=== PATIENT | male | born 1940 | race Caucasian/White ===

== ENCOUNTER 2020-12-21 13:40 | Inpatient (IN) | payer MEDICARE ==
[2020-12-21 15:19] VITALS: BMI 19.8
[2020-12-21] MEDS ORDERED: Ondansetron ODT 4 MG TAB PO PRN (15:33)
[2020-12-21] MEDS ORDERED: Nitroglycerin 0.4 MG TAB (25 Tab Bottle) SL PRN (15:33)
[2020-12-21] MEDS ORDERED: Acetaminophen 325 MG TAB PO PRN (15:33)
[2020-12-21] MEDS ORDERED: Zolpidem Tartrate 5 MG TAB PO PRN (15:33)
[2020-12-21] MEDS ORDERED: Senokot S 8.6-50 MG TAB PO PRN (15:33)
[2020-12-21] MEDS ORDERED: Ondansetron PF 4 MG/2 ML Vial IVP PRN (15:33)
[2020-12-21] MEDS ORDERED: Guaifenesin DM 100-10/5 ML UDCUP PO PRN (15:33)
[2020-12-21] MEDS ORDERED: Loperamide HCl 2 MG CAP PO PRN (15:33)
[2020-12-21] MEDS ORDERED: Calcium Carbonate 500 MG ChewTAB PO PRN (15:33)
[2020-12-21] MEDS ORDERED: Bisacodyl 10 MG SUPP PR PRN (15:33)
[2020-12-21] MEDS ORDERED: HYDROcodone/Acetaminophen 5/325 mg Tablet PO PRN (15:33)
[2020-12-21 19:52] LABS: Bacteria/HPF None Seen HPF (None Seen); Bilirubin Negative (Negative); Blood, Urine Negative (Negative); Clarity Clear (Clear); Glucose, Urine (Dipstick) Normal (Negative); Ketone, Urine Negative (Negative); Leukocyte Negative Leu/uL (Negative); Nitrite Negative (Negative); Protein, Urine (Dipstick) Negative (Neg-Trace); RBC/HPF 0-3 HPF (0-3); Specific Gravity, Urine 1.016 (1.002-1.036); Squamous Epithelial None Seen HPF (0-3); Urobilinogen Normal mg/dL (Less than 2); WBC/HPF 0-3 HPF (0-3); pH, Urine 5.5 (5.0-9.0)
[2020-12-21] MEDS ORDERED: Sodium Chloride 0.9% 1,000 ML IV SCH (20:45)
[2020-12-21] MEDS: Famotidine 20 MG TAB PO SCH (21:00)
[2020-12-21] MEDS ORDERED: Enoxaparin Sodium 80 MG/0.8 ML SYRINGE SC SCH (21:00)
[2020-12-21] MEDS ORDERED: Metoprolol Tartrate 25 MG TAB PO SCH (21:00)
[2020-12-21] MEDS ORDERED: Metoprolol Tartrate 50 MG TAB PO SCH (21:00)
[2020-12-21] MEDS: Rosuvastatin 10 MG TAB PO SCH (21:13)
[2020-12-21] MEDS: Nitroglycerin 2% Ointment 1 INCH/1 GM Packet TOP SCH (21:20)
[2020-12-22] MEDS: Sodium Chloride 0.9% 1,000 ML IV SCH ×2 (01:04→11:08)
[2020-12-22 03:42] LABS: #Eosinphils 0.3 thou/uL (0.0-0.7); #Lymphocytes 2.6 thou/uL (1.20-3.40); #Monocytes 0.5 thou/uL (0.11-0.59); #Neutrophils 3.2 thou/uL (1.40-6.50); %Basophils 0.3 % (0.0-1.0); %Eosinophils 4.9 % (0.0-10.0); %Lymphocytes 39.1 % (21.0-51.0); %Monocytes 7.6 % (0.0-10.0); %Neutrophils 48.1 % (42.0-75.0); Hemoglobin 12.2 g/dL (14.0-18.0); Mean Corpuscular HGB CONC 33.7 g/dL (32.0-36.0); Mean Corpuscular Hemoglobin 34.3 pg (27.0-31.0); Mean Platelet Volume 7.7 fL (7.4-10.4); Platelet Count 156 thou/uL (130-400); RBC Distribution Width 11.7 % (11.5-14.5); Red Blood Cell (RBC) Count 3.58 mill/uL (4.70-6.10); White Blood Cell (WBC) Count 6.7 thou/uL (4.8-10.8)
[2020-12-22 04:06] LABS: ALT (SGPT) 10 U/L (8-55); AST (SGOT) 28 U/L (5-34); Albumin 3.1 g/dL (3.4-4.8); Alkaline Phosphatase 74 U/L (40-110); Anion Gap 13 mmol/L (10-20); BUN (Urea Nitrogen) 25 mg/dL (8.4-25.7); Bilirubin, Total 0.4 mg/dL (0.2-1.2); Calc. Creatinine Clearance 44 mL/min (70-130); Calcium 8.4 mg/dL (7.8-10.44); Carbon Dioxide 18 mmol/L (23-31); Chloride 110 mmol/L (98-107); Cholesterol 113 mg/dl (< 200 Desired); Globulin 2.7 g/dL (2.4-3.5); Glucose 91 mg/dL (83-110); HDL Cholesterol 28 mg/dL (>60 Neg Risk); LDL Cholesterol, Calculated 62 mg/dL; Protein, Total 5.8 g/dL (5.8-8.1); Sodium 136 mmol/L (136-145); Triglycerides 113 mg/dL (Less than 150)
[2020-12-22] MEDS: Nitroglycerin 2% Ointment 1 INCH/1 GM Packet TOP SCH (05:54)
[2020-12-22] MEDS ORDERED: Communication Order-Pharmacy FS SCH (09:00)
[2020-12-22] MEDS ORDERED: Lisinopril 20 MG TAB PO SCH (09:00)
[2020-12-22] MEDS ORDERED: Lidocaine 1% (PF) 30 ML VIAL ONE (09:06)
[2020-12-22] MEDS ORDERED: Midazolam HCl 2 mg/2 ml Vial ONE (09:43)
[2020-12-22] MEDS ORDERED: Fentanyl 100 MCG/2 ML VIAL ONE (09:43)
[2020-12-22] MEDS ORDERED: Nitroglycerin 100MG/250ML BOT 250 ML ONE (10:12)
[2020-12-22] MEDS ORDERED: Nitroglycerin 0.4 MG TAB (25 Tab Bottle) SL PRN (10:34)
[2020-12-22] MEDS ORDERED: Acetaminophen/Codeine 30-300mg Tablet PO PRN (10:34)
[2020-12-22] MEDS ORDERED: Sodium Chloride 0.9% 200 ML IV PRN (10:34)
[2020-12-22] MEDS: Tamsulosin HCl 0.4 MG CAP PO SCH (11:05)
[2020-12-22] MEDS: Dutasteride 0.5 MG CAP PO SCH (11:05)
[2020-12-22] MEDS: Aspirin 325 mg Enteric Coated Tablet PO SCH (11:05)
[2020-12-22] MEDS: Cyanocobalamin (Vitamin B-12) 1,000 MCG TAB PO SCH (11:06)
[2020-12-22] MEDS: Folic Acid 1 MG TAB PO SCH (11:06)
[2020-12-22] MEDS ORDERED: Iopamidol 370 76% 100 ML VIAL ONE (12:03)
[2020-12-22] MEDS ORDERED: Potassium Chloride 20 MEQ TAB PO SCH (17:30)
[2020-12-22] MEDS ORDERED: Clopidogrel Bisulfate 300 MG TAB PO SCH (17:30)
[2020-12-22] MEDS ORDERED: Furosemide 20 MG/2 ML VIAL SLOW IVP SCH (17:30)
[2020-12-22] MEDS: Rosuvastatin 10 MG TAB PO SCH (21:21)
[2020-12-22] MEDS: Famotidine 20 MG TAB PO SCH (21:21)
[2020-12-23 05:07] LABS: Anion Gap 14 mmol/L (10-20); BUN (Urea Nitrogen) 18 mg/dL (8.4-25.7); Calc. Creatinine Clearance 48 mL/min (70-130); Calcium 8.9 mg/dL (7.8-10.44); Carbon Dioxide 22 mmol/L (23-31); Chloride 108 mmol/L (98-107); Glucose 90 mg/dL (83-110); Potassium 4.2 mmol/L (3.5-5.1); Sodium 140 mmol/L (136-145)
[2020-12-23] MEDS: Dutasteride 0.5 MG CAP PO SCH (08:18)
[2020-12-23] MEDS: Tamsulosin HCl 0.4 MG CAP PO SCH (08:18)
[2020-12-23] MEDS: Folic Acid 1 MG TAB PO SCH (08:19)
[2020-12-23] MEDS: Cyanocobalamin (Vitamin B-12) 1,000 MCG TAB PO SCH (08:19)
[2020-12-23] MEDS: Aspirin 325 mg Enteric Coated Tablet PO SCH (08:19)
[2020-12-23] MEDS ORDERED: Clopidogrel Bisulfate 75 MG TAB PO SCH (09:00)
[2020-12-23] MEDS ORDERED: Amlodipine 5 MG TAB PO SCH (10:00)
[2020-12-23] MEDS ORDERED: Lisinopril 10 MG TAB PO SCH (10:15)
[2020-12-23 12:01] VITALS: TEMP 97.7
[2020-12-23 13:46] VITALS: BP 184/86
[2020-12-24] MEDS ORDERED: Amlodipine 5 MG TAB PO SCH (09:00)
[2020-12-24] MEDS ORDERED: Aspirin 81 mg Enteric Coated Tablet PO SCH (09:00)
[2020-12-24] MEDS ORDERED: Lisinopril 10 MG TAB PO SCH ×2 (09:00)
== END 2020-12-23 13:20 | disposition home or self-care (01) | DRG 282 ==
LOC: 2NO 15:00
PROVIDERS: ADMIT Internal Medicine; ATTEND Internal Medicine
PROC: 4A023N7 Measurement of Cardiac Sampling and Pressure, Left Heart, Percutaneous Approach (ICD-10-PCS; principal; 2020-12-21)
PROC: B2111ZZ Fluoroscopy of Multiple Coronary Arteries using Low Osmolar Contrast (ICD-10-PCS; 2020-12-21)
PROC: B2151ZZ Fluoroscopy of Left Heart using Low Osmolar Contrast (ICD-10-PCS; 2020-12-21)
DX: I21.4 Non-ST elevation (NSTEMI) myocardial infarction (principal); F17.210 Nicotine dependence, cigarettes, uncomplicated; E78.5 Hyperlipidemia, unspecified; N40.0 Benign prostatic hyperplasia without lower urinary tract symptoms; J44.9 Chronic obstructive pulmonary disease, unspecified; E78.00 Pure hypercholesterolemia, unspecified; I12.9 Hypertensive chronic kidney disease with stage 1 through stage 4 chronic kidney disease, or unspecified chronic kidney disease; N18.32 Chronic kidney disease, stage 3b; D53.9 Nutritional anemia, unspecified; F17.200 Nicotine dependence, unspecified, uncomplicated; Z91.14 Patient's other noncompliance with medication regimen; Z79.01 Long term (current) use of anticoagulants; Z90.49 Acquired absence of other specified parts of digestive tract; Z85.828 Personal history of other malignant neoplasm of skin; Z79.82 Long term (current) use of aspirin; Z88.0 Allergy status to penicillin
CPT/HCPCS: 36415; 76942; 80048; 80053; 80061; 81001; 83880; 84484; 85025; 93005; 93010; 93458; 94640; 97139; 99152; J1650; J1940; J2001; J2250; J3010; J7620; Q9967